=== PATIENT | female | born 1970 | race Native Hawaiian/Other Pacific Islander ===

== ENCOUNTER 2018-11-11 08:49 | Emergency (ER) | payer BC ==
--- NOTE | 2018-11-11 09:52 | C.PDOC ---
History Of Present Illness 48 y/o female with asthma, s/p cardiac sx for pda, cholecystectomy and appendectomy, lumbar disk problems, c/o right flank pain that radiates to suprapubic area x 2 days that is constant, worse with movement, not alleviated by 600 mg motrin. no fever or chills, no nausea or vomiting. pt is menstruating. no trauma, heavy lifting, prolonged immobilizations, or recent surgery. denies urinary symptoms. Time Seen by Provider: 11/11/18 09:32 Chief Complaint (Nursing): Back Pain History Per: Patient History/Exam Limitations: no limitations Onset/Duration Of Symptoms: Days (2 days ), Other (constant ) Current Symptoms Are (Timing): Still Present Quality Of Discomfort: "Pain" (right flank with radiation to suprapubic area ) Exacerbating Factor(s): Movement Recent travel outside of the [place]: No Additional History Per: Patient Past Medical History Reviewed: Historical Data, Nursing Documentation, Vital Signs - Medical History PMH: Asthma Surgical History: Appendectomy, Cholecystectomy Family History: States: Unknown Family Hx - Social History Hx Alcohol Use: No Hx Substance Use: No - Immunization History Hx Tetanus Toxoid Vaccination: No Hx Influenza Vaccination: No Hx Pneumococcal Vaccination: No Review Of Systems Constitutional: Negative for: Fever, Chills Gastrointestinal: Negative for: Nausea, Vomiting Genitourinary: Negative for: Dysuria, Hematuria, Vaginal Discharge Musculoskeletal: Positive for: Back Pain (right flank pain radiating to suprapubic area ) Physical Exam - Physical Exam Appears: Well, Non-toxic, Other (uncomfortable ) Skin: Normal Color, Warm, Dry, No Rash Head: Atraumatic, Normacephalic Eye(s): bilateral: Normal Inspection Oral Mucosa: Moist Neck: Normal ROM, No Midline Cervical Tenderness, Supple Chest: Symmetrical, No Deformity Cardiovascular: Rhythm Regular, No Murmur Respiratory: No Rales, No Rhonchi, Wheezing (scattered ) Gastrointestinal/Abdominal: Bowel Sounds (normoactive ), Soft, No Tenderness, No Guarding, No Rebound Back: No Vertebral Tenderness (midline ), Paraspinal Tenderness ( right lumbar) Extremity: No Pedal Edema, No Calf Tenderness Neurological/Psych: Oriented x3, Normal Speech, Normal Cognition ED Course And Treatment - Laboratory Results Result Diagrams: 11/11/18 10:15 11/11/18 10:15 Medical Decision Making Medical Decision Making: pt with right flank pain, worse with movement, radiates to pelvis. ddx: kidney stone, pna, pe, musculoskeltal pain Plan: Bloodwork Urine Culture Urinalysis POC Urine Toradol 30 mg IVP Duoneb 3mg/0.5mg (3ml) UD 1242 pt with normal labs, neg d-dimer, ct neg for ab pathology and kidney stone. pt has hx of lumbar problems, and given pt's pain with movement today, is likely musculoskeletal related. pt plans to resume physical therapy. Disposition Counseled Patient/Family Regarding: Studies Performed, Diagnosis, Need For Followup, Rx Given - Disposition Referrals: Izzy Rosales MD [Staff Provider] - Disposition: HOME/ ROUTINE Disposition Time: 12:46 Condition: IMPROVED Additional Instructions: Please take naproxen as prescribed (with food). Use Lidoderm patches that you have at home on painful area for 12 hours on and 12 off. Take muscle relaxant at bedtime. Follow up with Dr Rosales. Return to ER for any worse symptoms. 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 - Scribe Statement The provider has reviewed the documentation as recorded by the Yossi Lopes All medical record entries made by the Yossi were at my direction and personally dictated by me. I have reviewed the chart and agree that the record accurately reflects my personal performance of the history, physical exam, medical decision making, and the department course for this patient. I have also personally directed, reviewed, and agree with the discharge instructions and disposition.
[2018-11-11] MEDS ORDERED: Albuterol-Ipratrop 3 mg / 0.5 (3 ml) UD INH STA (09:54)
[2018-11-11 10:18] LABS: BASO % 0.7 % (0.0-2.0); EOS # 0.3 K/uL (0.0-0.7); EOS % 4.8 % (0.0-4.0); HEMOGLOBIN 14.6 g/dL (11.0-16.0); LYMPH # 1.6 K/uL (1.0-4.3); LYMPH % 23.9 % (20.0-40.0); MEAN CELL VOLUME 90.3 fL (81.0-99.0); MEAN CORPUSCULAR HEMOGLOBIN 30.6 pg (27.0-31.0); MEAN PLATELET VOLUME 7.2 fL (7.2-11.7); MONO # 0.4 K/uL (0.0-0.8); MONO % 6.2 % (0.0-10.0); NEUT # 4.4 K/uL (1.8-7.0); NEUT % 64.4 % (50.0-75.0); RBC 4.76 Mil/uL (3.80-5.20); RED CELL DISTRIBUTION WIDTH 13.2 % (11.5-14.5); WHITE BLOOD COUNT 6.9 K/uL (4.8-10.8)
[2018-11-11] MEDS ORDERED: Albuterol-Ipratrop 3 mg / 0.5 (3 ml) UD ONE (10:22)
[2018-11-11 10:28] LABS: SQUAMOUS EPITHIAL 1 /hpf (0-5); URINE BILIRUBIN NEGATIVE (NEGATIVE); URINE BLOOD NEGATIVE (NEGATIVE); URINE CLARITY Hazy (Clear); URINE COLOR Amber (YELLOW); URINE GLUCOSE (UA) NORMAL (Normal); URINE LEUKOCYTE ESTERASE NEG Leu/uL (Negative); URINE PROTEIN NEGATIVE (NEGATIVE); URINE UROBILINOGEN NORMAL mg/dL (0.2-1.0)
[2018-11-11 10:34] LABS: ALB/GLOB RATIO 1.3 (1.0-2.1); ALBUMIN 4.7 g/dL (3.5-5.0); ALT/SGPT 30 U/L (9-52); AST/SGOT 36 U/L (14-36); BLOOD UREA NITROGEN 12 mg/dL (7-17); GFR NON-AFRICAN AMERICAN > 60
--- NOTE | 2018-11-11 12:06 | CT ---
PROCEDURE: CT Abdomen and Pelvis without Oral or IV contrast. HISTORY: right flank pain, eval for stone COMPARISON: None available. TECHNIQUE: Contiguous axial images of the abdomen and pelvis. No oral or IV contrast administered. Coronal and Sagittal reformats generated and reviewed. Radiation dose: Total exam DLP = 310.77 mGy-cm. This CT exam was performed using one or more of the following dose reduction techniques: Automated exposure control, adjustment of the mA and/or kV according to patient size, and/or use of iterative reconstruction technique. FINDINGS: There is limited evaluation of the solid organs without the administration of IV contrast. LOWER THORAX: No visible consolidation, pleural effusion, or pneumothorax. LIVER: Unremarkable unenhanced appearance. GALLBLADDER AND BILE DUCTS: Unremarkable unenhanced appearance. PANCREAS: Unremarkable unenhanced appearance. SPLEEN: Unremarkable unenhanced appearance. ADRENALS: Unremarkable unenhanced appearance. KIDNEYS AND URETERS: No hydronephrosis or obstructing renal calculus. BLADDER: The urinary bladder appears unremarkable. REPRODUCTIVE: Uterus is present. APPENDIX: The appendix appears within normal limits of caliber. No secondary signs of acute appendicitis. BOWEL: The stomach is nondistended. Lack of oral contrast limits evaluation for bowel pathology. The bowel loops appear within normal limits of caliber without evidence of intestinal obstruction. PERITONEUM: No significant free fluid. No definite free air. LYMPH NODES: Scattered subcentimeter mesenteric lymph nodes, nonspecific. No bulky lymphadenopathy identified. VASCULATURE: Scattered atherosclerotic calcifications. No aortic aneurysm. BONES: Mild degenerative changes of the spine. OTHER FINDINGS: None. IMPRESSION: No evidence of hydronephrosis or obstructing calculus. The appendix is not identified. No secondary signs of acute appendicitis appreciated. Correlate clinically. Scattered sub cm mesenteric lymph nodes, nonspecific.
[2018-11-11 13:04] VITALS: BP 124/83; PULSE 86; RESP 18; TEMP 98.4; O2SAT 100
== END 2018-11-11 13:12 | disposition home or self-care (01) ==
LOC: C.ER 08:49
DX: S29.012A Strain of muscle and tendon of back wall of thorax, initial encounter (principal); X58.XXXA Exposure to other specified factors, initial encounter
CPT/HCPCS: 74176; 80053; 81001; 81025; 85025; 85378; 94150; 94640; 96374; 99285; J1885

== ENCOUNTER 2018-12-13 11:32 | Observation (INO) | payer BC ==
[2018-12-13 11:40] VITALS: BMI 22.7
[2018-12-13 12:24] LABS: BASO # 0.1 K/uL (0.0-0.2); BASO % 0.6 % (0.0-2.0); EOS # 0.5 K/uL (0.0-0.7); MEAN PLATELET VOLUME 7.2 fL (7.2-11.7); MONO # 0.6 K/uL (0.0-0.8); NEUT # 8.3 K/uL (1.8-7.0); NRBC % 0.1 % (0.0-2.0)
[2018-12-13 12:29] LABS: EOS % 4.4 % (0.0-4.0); HEMOGLOBIN 14.7 g/dL (11.0-16.0); LYMPH % 17.3 % (20.0-40.0); MEAN CORPUSCULAR HEMOGLOBIN 29.2 pg (27.0-31.0); MEAN CORPUSCULAR HGB CONC 32.4 g/dL (33.0-37.0); MONO % 4.9 % (0.0-10.0); NEUT % 72.8 % (50.0-75.0); RBC 5.04 Mil/uL (3.80-5.20); RED CELL DISTRIBUTION WIDTH 13.1 % (11.5-14.5)
[2018-12-13 12:30] LABS: WHITE BLOOD COUNT 11.4 K/uL (4.8-10.8)
--- NOTE | 2018-12-13 12:36 | C.PDOC ---
History Of Present Illness 48yo female with history of GERD, on protonix (compliant), comes to ER reporting a 2 day history of epigastric abdominal pain. She states no relief in her symptoms with protonix. Otherwise, she denies any nausea, vomiting or diarrhea. No other medical complaints. PMD: Dr. Rosales Time Seen by Provider: 12/13/18 11:56 Chief Complaint (Nursing): Abdominal Pain History Per: Patient History/Exam Limitations: no limitations Location Of Pain/Discomfort: Epigastric Quality Of Discomfort: "Pain" Associated Symptoms: denies: Fever, Chills, Nausea, Vomiting, Diarrhea Additional History Per: Patient Past Medical History Reviewed: Historical Data, Nursing Documentation, Vital Signs Vital Signs: Last Vital Signs Temp 97.3 F L 12/13/18 11:40 Pulse 83 12/13/18 11:40 Resp 18 12/13/18 11:40 BP 145/87 12/13/18 11:40 Pulse Ox 98 12/13/18 11:40 - Medical History PMH: Asthma, GERD Surgical History: Appendectomy, Cholecystectomy Family History: States: No Known Family Hx - Social History Hx Alcohol Use: No Hx Substance Use: No - Immunization History Hx Tetanus Toxoid Vaccination: No Hx Influenza Vaccination: No Hx Pneumococcal Vaccination: No Review Of Systems Except As Marked, All Systems Reviewed And Found Negative. Constitutional: Negative for: Fever, Chills Cardiovascular: Negative for: Chest Pain Respiratory: Negative for: Shortness of Breath Gastrointestinal: Positive for: Abdominal Pain. Negative for: Nausea, Vomiting, Diarrhea Physical Exam - Physical Exam Appears: Non-toxic, No Acute Distress Skin: Normal Color Head: Atraumatic, Normacephalic Eye(s): bilateral: Normal Inspection Oral Mucosa: Moist Neck: Normal ROM, Supple Chest: Symmetrical Cardiovascular: Rhythm Regular Respiratory: Normal Breath Sounds Gastrointestinal/Abdominal: Soft, Tenderness (epigastric), No Guarding, No Rebound Back: Normal Inspection Extremity: Normal ROM Neurological/Psych: Oriented x3 ED Course And Treatment - Laboratory Results Result Diagrams: 12/13/18 12:08 12/13/18 12:08 O2 Sat by Pulse Oximetry: 98 (RA) Pulse Ox Interpretation: Normal - CT Scan/US CT Abdomen/Pelvis Other Rad Studies (CT/US): Read By Radiologist, Radiology Report Reviewed CT/US Interpretation: FINDINGS: LOWER THORAX: Size within range of normal. No significant pericardial effusion. There is a small hiatal hernia. Lung bases are clear without focal consolidation. No evidence of effusion or basilar pneumothorax. LIVER: Liver exhibits normal size measuring approximately 16.4 cm in CC dimension. Mild diffuse fatty hepatic infiltration. No obvious hepatic mass collection or calcification. Minimal central intrahepatic biliary ductal dilatation. Portal and splenic veins are opacified. GALLBLADDER AND BILE DUCTS: Gallbladder not visualized consistent with this patient's history of prior cholecystectomy. There is mild dilatation of the common bile duct. PANCREAS: Unremarkable. No mass. No ductal dilatation. SPLEEN: Spleen exhibits normal size and attenuation pattern without mass collection or calcification. ADRENALS: No adrenal lesions. KIDNEYS AND URETERS: Kidneys demonstrate symmetric nephrograms. No evidence of nephrolithiasis or hydronephrosis. No obvious renal masses or collections. Of nephrolithiasis or hydronephrosis. BLADDER: Urinary bladder is incompletely distended which in part accounts for slight thick-walled appearance. Correlation with urinalysis to exclude cystitis.. REPRODUCTIVE: Multiple ill-defined rounded -elliptical shaped low-attenuation foci seen in the region of the cervix likely representing multiple nabothian cysts. Increased vascularity seen adjacent to the left lateral margin of the uterus likely representing pelvic congestion syndrome. Suspect small approximately 16 mm x 10 mm right adnexal cyst. Follow-up of pelvic ultrasound recommended for all of the aforementioned findings. APPENDIX: Not seen consistent with this patient's history of appendectomy. BOWEL: Evaluation of the bowel slightly limited due to the lack of circulating intravenous contrast material. Stomach is incompletely distended with mild secondary wall thickening however questionable of edematous changes in the wall of the mid and distal stomach. There is partial collapse of the distal transverse, descending sigmoid and rectum which may in part account for mild wall thickening however findings are slightly more pronounced than expected and the possibility of a colitis must be considered. Similar collapse and secondary wall thickening of the descending and sigmoid colon though again colitis should be excluded. Diverticulosis which which was more obvious on the prior exam less well seen on the current study. PERITONEUM: Unremarkable. No fluid collection. No free air. LYMPH NODES: There are a few small nonspecific lymph nodes in the right lower quadrant of the abdomen; rule out mesenteric adenitis. VASCULATURE: Unremarkable. No aortic aneurysm. No aortic atherosclerotic calcification or mural plaque present. BONES: Mild multilevel degenerative spondylosis of the lumbar and to a lesser degree lower thoracic spine. OTHER FINDINGS: None. IMPRESSION: There is mild wall thickening of the distal half of the colon including the rectosigmoid region in part due to incomplete distention however possibility of a nonspecific colitis must be considered. There is also mild wall thickening of the distal so half of the stomach part of which appears edematous. Rule out gastritis or peptic ulcer disease. Cholecystectomy with mild dilatation of the common bile duct and minimal central intrahepatic biliary ductal dilatation. Mild fatty hepatic infiltration. Status post appendectomy. Probable numerous nabothian cysts. Findings also suggest a pelvic congestion syndrome. Small right adnexal cyst. Follow-up pelvic ultrasound recommended for all the above-mentioned findings. Diverticulosis which which was more obvious on the prior exam less well seen on the current study Medical Decision Making Medical Decision [place] female with epigastric pain Plan: -- Labs -- Urinalysis -- XR abdomen (obstructive series) -- Toradol 30mg IVP -- Protonix 40mg IVP [address] Rosales, patient admitted under his service. Dr. Ye on surgical consult; surgical technology instructor informed and will come evaluate patient at bedside Disposition Discussed With Dr.: Izzy Rosales Doctor Will See Patient In The: Hospital Counseled Patient/Family Regarding: Studies Performed, Diagnosis - Disposition Disposition: HOSPITALIZED Disposition Time: 15:42 Condition: FAIR Forms: [facility] ([place]adorean) - Clinical Impression Clinical Impression: Abdominal pain - Scribe Statement The provider has reviewed the documentation as recorded by the Yossi Delgadillo Provider Attestation: All medical record entries made by the Yossi were at my direction and personally dictated by me. I have reviewed the chart and agree that the record accurately reflects my personal performance of the history, physical exam, medical decision making, and the department course for this patient. I have also personally directed, reviewed, and agree with the discharge instructions and disposition.
[2018-12-13 12:41] LABS: ALB/GLOB RATIO 1.3 (1.0-2.1); ALT/SGPT 31 U/L (9-52); AST/SGOT 38 U/L (14-36); BLOOD UREA NITROGEN 11 mg/dL (7-17); CALCIUM 8.9 mg/dl (8.6-10.4); GFR NON-AFRICAN AMERICAN > 60; LIPASE 156 U/L (23-300)
[2018-12-13] MEDS ORDERED: Morphine 4 MG/ML VIAL IV STA ×2 (12:53→15:32)
[2018-12-13] MEDS ORDERED: Alum-Mag Hydrox-Simethicone Susp (30 mL) PO STA (12:54)
[2018-12-13] MEDS ORDERED: Aluminum Hydroxide/Magnesium Hydroxide Susp (30 mL) ONE (13:03)
--- NOTE | 2018-12-13 13:37 | RAD ---
Date of service: 12/13/2018 PROCEDURE: Radiographs of the chest and abdomen (obstructive series) HISTORY: Abdominal pain COMPARISON: No prior. TECHNIQUE: AP radiograph of the chest, with upright and supine radiographs of the abdomen. FINDINGS: CHEST: Lungs: The lungs are well inflated and clear. Cardiovascular: Normal size heart. No pulmonary vascular congestion. No aortic atherosclerotic calcification present Pleura: No pleural fluid. No pneumothorax. Other findings: None. ABDOMEN AND PELVIS: Bowel: The bowel gas pattern is nonspecific. There is moderate amount of stool in the ascending colon. No evidence of mechanical obstruction. Free air: None. Bones: Unremarkable. Other findings: None. IMPRESSION: Nonspecific nonobstructive bowel gas pattern. Clear lungs.
[2018-12-13] MEDS ORDERED: Iodixanol 320 MG/ML 100 ML BOTTLE IV ONE (14:05)
--- NOTE | 2018-12-13 15:39 | CT ---
Date of service: 12/13/2018 PROCEDURE: CT Abdomen and Pelvis.. HISTORY: Abdominal pain COMPARISON: Comparison made with prior CT scan abdomen pelvis 11/11/2018. TECHNIQUE: Contiguous axial images of the abdomen and pelvis performed following intravenous injection of approximately 100 cc Visipaque 320 contrast material. Additional 2D sagittal and coronal reformats generated. Radiation dose: Total exam DLP = 204.98 mGy-cm. This CT exam was performed using one or more of the following dose reduction techniques: Automated exposure control, adjustment of the mA and/or kV according to patient size, and/or use of iterative reconstruction technique. FINDINGS: LOWER THORAX: Size within range of normal. No significant pericardial effusion. There is a small hiatal hernia. Lung bases are clear without focal consolidation. No evidence of effusion or basilar pneumothorax. LIVER: Liver exhibits normal size measuring approximately 16.4 cm in CC dimension. Mild diffuse fatty hepatic infiltration. No obvious hepatic mass collection or calcification. Minimal central intrahepatic biliary ductal dilatation. Portal and splenic veins are opacified. GALLBLADDER AND BILE DUCTS: Gallbladder not visualized consistent with this patient's history of prior cholecystectomy. There is mild dilatation of the common bile duct. PANCREAS: Unremarkable. No mass. No ductal dilatation. SPLEEN: Spleen exhibits normal size and attenuation pattern without mass collection or calcification. ADRENALS: No adrenal lesions. KIDNEYS AND URETERS: Kidneys demonstrate symmetric nephrograms. No evidence of nephrolithiasis or hydronephrosis. No obvious renal masses or collections. Of nephrolithiasis or hydronephrosis BLADDER: Urinary bladder is incompletely distended which in part accounts for slight thick-walled appearance. Correlation with urinalysis to exclude cystitis.. REPRODUCTIVE: Multiple ill-defined rounded -elliptical shaped low-attenuation foci seen in the region of the cervix likely representing multiple nabothian cysts. Increased vascularity seen adjacent to the left lateral margin of the uterus likely representing pelvic congestion syndrome. Suspect small approximately 16 mm x 10 mm right adnexal cyst. Follow-up of pelvic ultrasound recommended for all of the aforementioned findings. APPENDIX: Not seen consistent with this patient's history of appendectomy BOWEL: Evaluation of the bowel slightly limited due to the lack of circulating intravenous contrast material. Stomach is incompletely distended with mild secondary wall thickening however questionable of edematous changes in the wall of the mid and distal stomach. There is partial collapse of the distal transverse, descending sigmoid and rectum which may in part account for mild wall thickening however findings are slightly more pronounced than expected and the possibility of a colitis must be considered. Similar collapse and secondary wall thickening of the descending and sigmoid colon though again colitis should be excluded. Diverticulosis which which was more obvious on the prior exam less well seen on the current study PERITONEUM: Unremarkable. No fluid collection. No free air. LYMPH NODES: There are a few small nonspecific lymph nodes in the right lower quadrant of the abdomen; rule out mesenteric adenitis. VASCULATURE: Unremarkable. No aortic aneurysm. No aortic atherosclerotic calcification or mural plaque present. BONES: Mild multilevel degenerative spondylosis of the lumbar and to a lesser degree lower thoracic spine. OTHER FINDINGS: None. IMPRESSION: There is mild wall thickening of the distal half of the colon including the rectosigmoid region in part due to incomplete distention however possibility of a nonspecific colitis must be considered. There is also mild wall thickening of the distal so half of the stomach part of which appears edematous. Rule out gastritis or peptic ulcer disease. Cholecystectomy with mild dilatation of the common bile duct and minimal central intrahepatic biliary ductal dilatation. Mild fatty hepatic infiltration. Status post appendectomy. Probable numerous nabothian cysts. Findings also suggest a pelvic congestion syndrome. Small right adnexal cyst. Follow-up pelvic ultrasound recommended for all the above-mentioned findings. Diverticulosis which which was more obvious on the prior exam less well seen on the current study
[2018-12-13] MEDS ORDERED: Morphine 4 MG/ML VIAL ONE (15:41)
--- NOTE | 2018-12-13 17:11 | CP.PCM.CON ---
<Lenka Dozier - Last Filed: 12/13/18 17:23> History of Present Illness - History of Present Illness History of Present Illness: GENERAL SURGERY CONSULT NOTE FOR DR. YE Patient is a 48 y/o female with past medical history of GERD and asthma who presented to the ED with worsening epigastric abdominal pain since last night. She complains of having intermittent abd pain over the past 7 days and described the pain to be sharp epigastric and mid left abdomen which is non radiating and rates it 10/10. This has never happened in the past. She took Protonix, but did not seem to help with the pain. Denies fever, chills, chest pain, SOB, nausea, vomit, dysuria, constipation, diarrhea or blood in stool. PMHx: GERD, asthma Surgeries: open appendectomy, open cholecystectomy, x2, PDA surgery Allergies: none Meds: protonix, mylenta Social history: denies etoh abuse, tobacco abuse, illicit drug use Review of Systems - Review of Systems All systems: reviewed and no additional remarkable complaints except (as per hpi) - Gastrointestinal Gastrointestinal: Abdominal Pain, Nausea. absent: Change in Bowel Habits, Change in Stool Character, Constipation, Diarrhea, Hematemesis, Hematochezia, Loose Stools, Melena, Vomiting - Genitourinary Genitourinary: absent: Difficulty Urinating, Dysuria, Flank Pain, Hematuria, Urinary Incontinence, Urinary Frequency Past Patient History - Past Medical History & Family History Past Medical History?: Yes Pertinent Family History: Father and siblings have HTN - Past Social History Smoking Status: Never Smoked Chewing Tobacco Use: No Cigar Use: No Alcohol: None Drugs: Denies Home Situation {Lives}: With Family - CARDIAC Hx Cardiac Disorders: Yes Other/Comment: palpitations as per patient. open heart surgery as a child - PULMONARY Hx Asthma: Yes - MUSCULOSKELETAL/RHEUMATOLOGICAL Hx Musculoskeletal Disorders: Yes Hx Back Pain: Yes - GASTROINTESTINAL Hx Gastrointestinal Disorders: Yes Hx Gastroesophageal Reflux: Yes - PSYCHIATRIC Hx Substance Use: No - SURGICAL HISTORY Hx Appendectomy: Yes Hx Cholecystectomy: Yes - ANESTHESIA Hx Anesthesia: Yes Hx Anesthesia Reactions: No Meds Allergies/Adverse Reactions: Allergies Allergy/AdvReac Type Severity Reaction Status Date / Time No Known Allergies Allergy Verified 12/13/18 11:40 - Medications Medications: Current Medications Heparin Sodium (Porcine) (Heparin) 5,000 units SC Q8 [facility] Hydromorphone HCl (Dilaudid) 0.5 mg IVP Q6H PRN PRN Reason: Pain, severe (8-10) Ceftriaxone Sodium (Rocephin Iv 1 Gm Duplex) 50 mls @ 100 mls/hr IVPB DAILY [facility]; Protocol Ketorolac Tromethamine (Toradol) 30 mg IVP Q6 PRN PRN Reason: Pain, moderate (4-7) Pantoprazole Sodium (Protonix Inj) 40 mg IVP DAILY [facility] Physical Exam - Constitutional Appears: Non-toxic, No Acute Distress Additional comments: Uncomfortable - Head Exam Head Exam: ATRAUMATIC, NORMAL INSPECTION, NORMOCEPHALIC - Eye Exam Eye Exam: EOMI, Normal appearance, PERRL Pupil Exam: NORMAL ACCOMODATION - ENT Exam ENT Exam: Mucous Membranes Moist, Normal Exam - Respiratory Exam Respiratory Exam: Clear to Auscultation Bilateral, NORMAL BREATHING PATTERN. ab sent: Decreased Breath Sounds, Rales, Rhonchi, Wheezes - Cardiovascular Exam Cardiovascular Exam: REGULAR RHYTHM, +S1, +S2. absent: Tachycardia, Irregular Rhythm - GI/Abdominal Exam GI & Abdominal Exam: Normal Bowel Sounds, Soft, Tenderness (epigastric, LUQ). absent: Distended, Firm, Mass, Rebound, Rigid - Back Exam Back exam: NORMAL INSPECTION. absent: CVA tenderness (L), CVA tenderness (R), rash noted - Neurological Exam Neurological exam: Alert, Oriented x3 - Psychiatric Exam Psychiatric exam: Normal Affect, Normal Mood - Skin Skin Exam: Dry, Normal Color, Warm Results - Vital Signs Recent Vital Signs: Last Vital Signs Temp 97.3 F L 12/13/18 11:40 Pulse 92 H 12/13/18 16:34 Resp 16 12/13/18 16:34 BP 125/89 12/13/18 16:34 Pulse Ox 98 12/13/18 16:34 - Labs Result Diagrams: 12/13/18 12:08 12/13/18 12:08 Labs: Laboratory Results - last 24 hr 12/13/18 12/13/18 12/13/18 12:08 12:08 12:08 WBC 11.4 H D RBC 5.04 Hgb 14.7 Hct 45.4 MCV 90.0 MCH 29.2 MCHC 32.4 L RDW 13.1 Plt Count 383 MPV 7.2 Neut % (Auto) 72.8 Lymph % (Auto) 17.3 L [place] % (Auto) 4.9 Eos % (Auto) 4.4 H Baso % (Auto) 0.6 Neut # (Auto) 8.3 H Lymph # (Auto) 2.0 [place] # (Auto) 0.6 Eos # (Auto) 0.5 Baso # (Auto) 0.1 Sodium 136 Potassium 3.5 L Chloride 100 Carbon Dioxide 27 Anion Gap 12 BUN 11 Creatinine 0.5 L Est GFR ( Amer) > 60 Est GFR (Non-Af Amer) > 60 Random Glucose 92 Calcium 8.9 Total Bilirubin 0.7 AST 38 H ALT 31 Alkaline Phosphatase 71 Troponin I < 0.0120 Total Protein 9.0 H Albumin 5.0 Globulin 3.9 Albumin/Globulin Ratio 1.3 Lipase 156 Beta HCG, Quant < 2.39 Assessment & Plan - Assessment and Plan (Free Text) Assessment: 48 y.o female with past medical history of GERD and Asthma who presented to the ED with epigastric abdominal pain - Afebrile, VSS - WBC 11.4 - Obstructive series: no free air - CT: mild wall thickening of distal colon in part due to incomplete distention however possibility of nonspecific colitis must be considered. Also mild wall thickening of distal half of stomach which appears edematous. Rule out gastritis or PUD - No acute surgical intervention necessary - PPI - FU lactate - Will discuss plan with Dr. Ephraim Dozier PGY-4 <Kenneth Ye - Last Filed: 12/15/18 17:06> Meds - Medications Medications: Current Medications Al Hydrox/Mg Hydrox/Simethicone (Maalox 30 Ml) 30 ml PO Q8 PRN PRN Reason: Indigestion / Heartburn Last Admin: 12/14/18 09:28 Dose: 30 ml Heparin Sodium (Porcine) (Heparin) 5,000 units SC Q8 [facility] Last Admin: 12/15/18 14:48 Dose: Not Given Sodium Chloride (Sodium Chloride 0.9%) 1,000 mls @ 100 mls/hr IV .Q10H [facility] Last Admin: 12/15/18 12:38 Dose: Not Given Metronidazole (Flagyl) 500 mg in 100 mls @ 100 mls/hr IVPB Q8H [facility]; Protocol Last Admin: 12/15/18 12:38 Dose: 100 mls/hr Piperacillin Sod/Tazobactam Sod (Zosyn 3.375 Gm Iv Premix) 3.375 gm in 50 mls @ 100 mls/hr IVPB Q6H [facility]; Protocol Last Admin: 12/15/18 17:03 Dose: 100 mls/hr Pantoprazole Sodium (Protonix Ec Tab) 40 mg PO DAILY [facility] Last Admin: 12/15/18 10:34 Dose: 40 mg Results - Vital Signs Recent Vital Signs: Last Vital Signs Temp 98.1 F 12/15/18 15:00 Pulse 84 12/15/18 15:00 Resp 20 12/15/18 15:00 BP 117/74 12/15/18 15:00 Pulse Ox 99 12/15/18 16:42 - Labs Result Diagrams: 12/15/18 08:26 12/15/18 08:26 Labs: Laboratory Results - last 24 hr 12/14/18 12/15/18 12/15/18 08:21 08:26 08:26 WBC 7.4 RBC 4.16 Hgb 12.5 Hct 37.4 MCV 89.8 MCH 30.1 MCHC 33.5 RDW 13.3 Plt Count 313 MPV 7.2 Sodium 135 Potassium 4.0 Chloride 103 Carbon Dioxide 27 Anion Gap 9 L BUN 4 L Creatinine 0.6 L Est GFR ( Amer) > 60 Est GFR (Non-Af Amer) > 60 Random Glucose 99 D Calcium 7.9 L Total Bilirubin 0.9 Direct Bilirubin 0.1 AST 73 H D ALT 113 H Alkaline Phosphatase 79 Total Protein 6.9 Albumin 4.0 Globulin 2.9 Albumin/Globulin Ratio 1.4 Stool Occult Blood C. difficile Ag & Toxin Negative 12/15/18 12:00 WBC RBC Hgb Hct MCV MCH MCHC RDW Plt Count MPV Sodium Potassium Chloride Carbon Dioxide Anion Gap BUN Creatinine Est GFR ( Amer) Est GFR (Non-Af Amer) Random Glucose Calcium Total Bilirubin Direct Bilirubin AST ALT Alkaline Phosphatase Total Protein Albumin Globulin Albumin/Globulin Ratio Stool Occult Blood Negative C. difficile Ag & Toxin Attending/Attestation - Attestation I have personally seen and examined this patient.: Yes I have fully participated in the care of the patient.: Yes I have reviewed all pertinent clinical information: Yes Notes (Text): Pt was seen and examined at bedside Agree with above note and assessment Pt with Diarrhea and Abdominal Pain Abdomen: Soft, ND, tender in LLQ Labs and Radiology reviewed Ass: Colitis with PSBO/ileus Plan : IV antibiotics NPO, IVF GI consult Serial abdominal exam Plan d.w pt in detail Risk and benefit explained in detail.
[2018-12-13] MEDS ORDERED: Aluminum Hydroxide/Magnesium Hydroxide Susp (30 mL) PO PRN (17:15)
[2018-12-13] MEDS: Sodium Chloride 0.9% 1,000 ML IV SCH (17:35)
[2018-12-13 17:48] LABS: VENOUS BLOOD GAS BASE EXCESS -1.8 mmol/L (0.0-2.0); VENOUS BLOOD GAS PCO2 39 mmHg (40-60); VENOUS BLOOD GAS PO2 57 mm/Hg (30-55); VENOUS BLOOD PH 7.38 (7.32-7.43)
[2018-12-13] MEDS ORDERED: Sucralfate 1 gm/10 ml Oral Susp UD PO SCH (18:00)
[2018-12-13] MEDS ORDERED: cefTRIAXone IV 1 gm in Dextros 50 ML IVPB SCH (18:30)
[2018-12-13 18:55] LABS: SQUAMOUS EPITHIAL 1 /hpf (0-5); URINE BACTERIA RARE (<OCC); URINE BILIRUBIN NEGATIVE (NEGATIVE); URINE BLOOD NEGATIVE (NEGATIVE); URINE CLARITY Clear (Clear); URINE COLOR Yellow (YELLOW); URINE GLUCOSE (UA) NORMAL (Normal); URINE LEUKOCYTE ESTERASE NEG Leu/uL (Negative); URINE PROTEIN NEGATIVE (NEGATIVE); URINE UROBILINOGEN NORMAL mg/dL (0.2-1.0)
[2018-12-13] MEDS: HYDROmorphone 0.5 mg/0.5 ml ISec IVP PRN (18:59)
[2018-12-13] MEDS: Pantoprazole 80 MG in Sodium Chloride 0.9% 100 ML IVPB SCH (19:16)
--- NOTE | 2018-12-13 21:21 | CP.PCM.HP ---
History of Present Illness - History of Present Illness History of Present Illness: Chief complaint: Sudden onset of abdominal pain HPI: 48-year-old female with history of bronchial asthma, history of patent ductus ar teriosus closure at the age of 3 months, and also lumbar disc disease with recently associate with chronic back pain. Patient started noticing somewhat of abdominal pain, started at least 1 week. The pain was intermittent initially epigastric area nonradiating pain, but gradually the pain got worse. Patient was taking pantoprazole without any improvement. She was also using some [id number] medication without any improvement. Patient started getting worsening. Yesterday to this morning pain continued to be worsening, continuous pain noted, epigastric area, nonradiating pain, sometimes radiating to the back. She was also having nausea associated with the pain. No vomiting noted. Few episodes of increasing bowel movements yesterday noted. She was able to eat, but because of the nausea she was not able to eat well. Past medical history: Bronchial asthma. Surgical history: c section appendectomy and cholecytectomy PDA closure at 3 months. Family history: FATHER is . He at the age of 73. It was a natural . He had heart attack(mi) and hypertension. MOTHER is alive. She has hypertension. Allergies: No known drug allergy Family history noncontributory Patient is a non-smoker nonalcoholic Review of system: Patient is having no headache. She has a history of asthma but controlled with medications. She has a chronic lower back pain, recently got worse. Had MRI, showing evidence of multiple disc disease, was receiving physical therapy. Patient is having intermittent abdominal pain. In the past the patient was taking pantoprazole, with improvement. On examination: Vital signs stable. Blood pressure stable. Chest good air entry Regular heart sounds noted Abdomen patient has a significant tenderness in the epigastric and left hypochondriac area, but soft abdomen otherwise. Bowel movements are normal. Labs reviewed nonspecific CT scan of the abdomen and pelvis showing evidence of possible early colitis changes noted Also there is a significant engorgement of the pelvic venous system noted Assessment and recommendation: 48-year-old female with a history of bronchial asthma, history of patent ductus arteriosus closure at the age of 3 months, chronic lower back pain now came to the emergency room with worsening abdominal pain. Most likely patient has acute peptic ulcer disease. Possible associated pancreatitis cannot be ruled out Pelvic venous engorgement, possible associated pain PAD cannot be ruled out. 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 Will get GI evaluation. Recommended Protonix drip. Pain management. IV fluid. N.p.o. And will follow the patient Present on Admission - Present on Admission Any Indicators Present on Admission: No History of DVT/PE: No History of Uncontrolled Diabetes: No Urinary Catheter: No Decubitus Ulcer Present: No Past Patient History - Past Medical History & Family History Past Medical History?: Yes - Past Social History Smoking Status: Never Smoked Chewing Tobacco Use: No Cigar Use: No Alcohol: None Drugs: Denies Home Situation {Lives}: With Family - CARDIAC Hx Cardiac Disorders: Yes Other/Comment: palpitations as per patient. open heart surgery as a child - PULMONARY Hx Asthma: Yes - MUSCULOSKELETAL/RHEUMATOLOGICAL Hx Musculoskeletal Disorders: Yes Hx Back Pain: Yes - GASTROINTESTINAL Hx Gastrointestinal Disorders: Yes Hx Gastroesophageal Reflux: Yes - PSYCHIATRIC Hx Substance Use: No - SURGICAL HISTORY Hx Appendectomy: Yes Hx Cholecystectomy: Yes - ANESTHESIA Hx Anesthesia: Yes Hx Anesthesia Reactions: No Meds Allergies/Adverse Reactions: Allergies Allergy/AdvReac Type Severity Reaction Status Date / Time No Known Allergies Allergy Verified 12/13/18 11:40 Results - Vital Signs Recent Vital Signs: Last Vital Signs Temp 97.9 F 12/13/18 18:50 Pulse 100 H 12/13/18 18:50 Resp 20 12/13/18 18:50 BP 161/96 H 12/13/18 18:50 Pulse Ox 98 12/13/18 18:50 - Labs Result Diagrams: 12/13/18 12:08 12/13/18 12:08 Labs: Laboratory Results - last 24 hr 12/13/18 12/13/18 12/13/18 12:08 12:08 12:08 WBC 11.4 H D RBC 5.04 Hgb 14.7 Hct 45.4 MCV 90.0 MCH 29.2 MCHC 32.4 L RDW 13.1 Plt Count 383 MPV 7.2 Neut % (Auto) 72.8 Lymph % (Auto) 17.3 L [place] % (Auto) 4.9 Eos % (Auto) 4.4 H Baso % (Auto) 0.6 Neut # (Auto) 8.3 H Lymph # (Auto) 2.0 [place] # (Auto) 0.6 Eos # (Auto) 0.5 Baso # (Auto) 0.1 pO2 VBG pH VBG pCO2 VBG HCO3 VBG Total CO2 VBG O2 Sat (Calc) VBG Base Excess VBG Potassium Glucose Lactate Sodium 136 Potassium 3.5 L Chloride 100 Carbon Dioxide 27 Anion Gap 12 BUN 11 Creatinine 0.5 L Est GFR ( Amer) > 60 Est GFR (Non-Af Amer) > 60 Random Glucose 92 Calcium 8.9 Total Bilirubin 0.7 AST 38 H ALT 31 Alkaline Phosphatase 71 Troponin I < 0.0120 Total Protein 9.0 H Albumin 5.0 Globulin 3.9 Albumin/Globulin Ratio 1.3 Lipase 156 Beta HCG, Quant < 2.39 Venous Blood Potassium Urine Color Urine Clarity Urine pH Ur Specific [place] Urine Protein Urine Glucose (UA) Urine Ketones Urine Blood Urine Nitrate Urine Bilirubin Urine Urobilinogen Ur Leukocyte Esterase Urine WBC (Auto) Urine RBC (Auto) Ur Squamous Epith Cells Urine Bacteria 12/13/18 12/13/18 12/13/18 17:40 18:42 18:52 WBC RBC Hgb Hct MCV MCH MCHC RDW Plt Count MPV Neut % (Auto) Lymph % (Auto) [place] % (Auto) Eos % (Auto) Baso % (Auto) Neut # (Auto) Lymph # (Auto) [place] # (Auto) Eos # (Auto) Baso # (Auto) pO2 57 H VBG pH 7.38 VBG pCO2 39 L VBG HCO3 23.3 VBG Total CO2 24.3 VBG O2 Sat (Calc) 93.8 H VBG Base Excess -1.8 L VBG Potassium 5.2 Glucose 114 H Lactate 1.0 Sodium 138.0 Potassium Chloride 110.0 H Carbon Dioxide Anion Gap BUN Creatinine Est GFR ( Amer) Est GFR (Non-Af Amer) Random Glucose Calcium Total Bilirubin AST ALT Alkaline Phosphatase Troponin I Total Protein Albumin Globulin Albumin/Globulin Ratio Lipase 175 Beta HCG, Quant Venous Blood Potassium 5.2 Urine Color Yellow Urine Clarity Clear Urine pH 6.0 Ur Specific [place] > 1.060 H Urine Protein Negative Urine Glucose (UA) Normal Urine Ketones Trace Urine Blood Negative Urine Nitrate Negative Urine Bilirubin Negative Urine Urobilinogen Normal Ur Leukocyte Esterase Neg Urine WBC (Auto) 1 Urine RBC (Auto) 2 Ur Squamous Epith Cells 1 Urine Bacteria Rare
[2018-12-14] MEDS: Sodium Chloride 0.9% 1,000 ML IV SCH
[2018-12-14] MEDS: HYDROmorphone 0.5 mg/0.5 ml ISec IVP PRN (01:04)
[2018-12-14] MEDS: Pantoprazole 80 MG in Sodium Chloride 0.9% 100 ML IVPB SCH (04:15)
--- NOTE | 2018-12-14 08:19 | CP.PCM.PN ---
Subjective - Date & Time of Evaluation Date of Evaluation: 12/14/18 Time of Evaluation: 08:17 - Subjective Subjective: Patient still having abdominal pain at this time. But slightly better than yesterday. Currently receiving Protonix drip. On IV fluid. She had diarrhea last night. Watery stools noted. She did not have any nausea few episodes of. On examination: Vital signs are stable otherwise. Chest good air entry Regular heart sounds are regular labs currently pending. Epigastric tenderness severely noted GI evaluation currently pending Assessment and recommendation: 48-year-old female with a history of bronchial asthma, history of PDA closure. Now admitted with colitis likely. Acute peptic ulcer disease. GI evaluation pending. Currently n.p.o. We will start the patient on liquid diet if okay with the GI and will follow the patient Objective - Vital Signs/Intake and Output Vital Signs (last 24 hours): Temp Pulse Resp BP Pulse Ox 97.9 F 77 20 112/67 98 12/14/18 07:00 12/14/18 07:00 12/14/18 07:00 12/14/18 07:00 12/14/18 07:00 Intake and Output: 12/14/18 12/14/18 06:59 18:59 Intake Total 880 Balance 880 - Medications Medications: Current Medications Al Hydrox/Mg Hydrox/Simethicone (Maalox 30 Ml) 30 ml PO Q8 PRN PRN Reason: Indigestion / Heartburn Heparin Sodium (Porcine) (Heparin) 5,000 units SC Q8 [facility] Last Admin: 12/14/18 05:41 Dose: 5,000 units Hydromorphone HCl (Dilaudid) 0.5 mg IVP Q6H PRN PRN Reason: Pain, severe (8-10) Last Admin: 12/14/18 01:04 Dose: 0.5 mg Ceftriaxone Sodium (Rocephin Iv 1 Gm Duplex) 50 mls @ 100 mls/hr IVPB Q24H [facility]; Protocol Last Admin: 12/13/18 18:20 Dose: 100 mls/hr Pantoprazole Sodium 80 mg/ (Sodium Chloride) 100 mls @ 10 mls/hr IVPB .Q10H [facility] Last Admin: 12/14/18 04:15 Dose: 10 mls/hr Sodium Chloride (Sodium Chloride 0.9%) 1,000 mls @ 100 mls/hr IV .Q10H [facility] Last Admin: 12/14/18 00:58 Dose: 100 mls/hr Sucralfate (Carafate Oral Susp) 1 gm PO TID [facility] Last Admin: 12/13/18 18:15 Dose: 1 gm - Labs Labs: 12/13/18 12:08 12/13/18 12:08
[2018-12-14 08:51] LABS: BASO % 0.4 % (0.0-2.0); EOS # 0.2 K/uL (0.0-0.7); EOS % 1.6 % (0.0-4.0); LYMPH # 1.7 K/uL (1.0-4.3); LYMPH % 13.5 % (20.0-40.0); MEAN CELL VOLUME 89.3 fL (81.0-99.0); MEAN CORPUSCULAR HEMOGLOBIN 29.2 pg (27.0-31.0); MEAN CORPUSCULAR HGB CONC 32.8 g/dL (33.0-37.0); MEAN PLATELET VOLUME 7.3 fL (7.2-11.7); MONO # 0.7 K/uL (0.0-0.8); MONO % 5.8 % (0.0-10.0); NEUT # 9.7 K/uL (1.8-7.0); NEUT % 78.7 % (50.0-75.0); NRBC % 0.1 % (0.0-2.0); RBC 4.35 Mil/uL (3.80-5.20); RED CELL DISTRIBUTION WIDTH 13.1 % (11.5-14.5); WHITE BLOOD COUNT 12.3 K/uL (4.8-10.8)
[2018-12-14 08:54] LABS: HEMOGLOBIN 12.7 g/dL (11.0-16.0)
--- NOTE | 2018-12-14 09:12 | CP.PCM.CON ---
History of Present Illness - History of Present Illness History of Present Illness: CC: abdominal pain HPI: Asked by Dr Rosales to evaluate this 48 yr old woman who developed sudden severe non radiating mid abdominal pain 2 days ago. pain is worsened by food intake. Denies changes in bowel habits until yesterday when she developed loose BMs. Patient had pelvic sono and CT abdomen with contrast which did not show any significant GI related findings, possible gastritis and colitis, and pelvic congestion. Long h/o GERD for which she has been instructed to have EGD in [facility], but refused due to fear of the procedure. Pt takes NSAIDs on occasion for back pains but stopped because it was not helping. Pt has exertional dyspnea and positive cardiac stress test recently, but never followed up on this. Discussed with Dr Rosales. Review of Systems - Constitutional Constitutional: absent: Chills, Fever - EENT Eyes: absent: Change in Vision Ears: absent: Decreased Hearing - Cardiovascular Cardiovascular: Chest Pain with Activity. absent: Chest Pain at Rest, Orthopnea - Respiratory Respiratory: absent: Cough - Gastrointestinal Gastrointestinal: As Per HPI, Abdominal Pain - Genitourinary Genitourinary: absent: Change in Urinary Stream - Musculoskeletal Musculoskeletal: As Per HPI, Back Pain - Integumentary Integumentary: absent: Jaundice - Neurological Neurological: absent: Weakness - Psychiatric Psychiatric: absent: Anxiety Past Patient History - Past Medical History & Family History Past Medical History?: Yes - Past Social History Smoking Status: Never Smoked Chewing Tobacco Use: No Cigar Use: No Alcohol: None Drugs: Denies Home Situation {Lives}: With Family - CARDIAC Hx Cardiac Disorders: Yes Other/Comment: palpitations as per patient. open heart surgery as a child - PULMONARY Hx Asthma: Yes - MUSCULOSKELETAL/RHEUMATOLOGICAL Hx Musculoskeletal Disorders: Yes Hx Back Pain: Yes - GASTROINTESTINAL Hx Gastrointestinal Disorders: Yes Hx Gastroesophageal Reflux: Yes - PSYCHIATRIC Hx Substance Use: No - SURGICAL HISTORY Hx Appendectomy: Yes Hx Cholecystectomy: Yes - ANESTHESIA Hx Anesthesia: Yes Hx Anesthesia Reactions: No Meds Allergies/Adverse Reactions: Allergies Allergy/AdvReac Type Severity Reaction Status Date / Time No Known Allergies Allergy Verified 12/13/18 11:40 - Medications Medications: Current Medications Al Hydrox/Mg Hydrox/Simethicone (Maalox 30 Ml) 30 ml PO Q8 PRN PRN Reason: Indigestion / Heartburn Heparin Sodium (Porcine) (Heparin) 5,000 units SC Q8 [facility] Last Admin: 12/14/18 05:41 Dose: 5,000 units Hydromorphone HCl (Dilaudid) 0.5 mg IVP Q6H PRN PRN Reason: Pain, severe (8-10) Last Admin: 12/14/18 01:04 Dose: 0.5 mg Ceftriaxone Sodium (Rocephin Iv 1 Gm Duplex) 50 mls @ 100 mls/hr IVPB Q24H [facility]; Protocol Last Admin: 12/13/18 18:20 Dose: 100 mls/hr Pantoprazole Sodium 80 mg/ (Sodium Chloride) 100 mls @ 10 mls/hr IVPB .Q10H [facility] Last Admin: 12/14/18 04:15 Dose: 10 mls/hr Sodium Chloride (Sodium Chloride 0.9%) 1,000 mls @ 100 mls/hr IV .Q10H [facility] Last Admin: 12/14/18 00:58 Dose: 100 mls/hr Sucralfate (Carafate Oral Susp) 1 gm PO TID [facility] Last Admin: 12/13/18 18:15 Dose: 1 gm Physical Exam - Constitutional Appears: Well, No Acute Distress - Head Exam Head Exam: NORMOCEPHALIC - Eye Exam Eye Exam: absent: Scleral icterus - ENT Exam ENT Exam: Normal Exam - Neck Exam Neck exam: Positive for: Normal Inspection - Respiratory Exam Respiratory Exam: Clear to Auscultation Bilateral - Cardiovascular Exam Cardiovascular Exam: REGULAR RHYTHM - GI/Abdominal Exam GI & Abdominal Exam: Soft. absent: Guarding, Mass, Tenderness - Rectal Exam Rectal Exam: Deferred - Extremities Exam Extremities exam: Positive for: normal inspection - Neurological Exam Neurological exam: Alert, Oriented x3 - Psychiatric Exam Psychiatric exam: Normal Affect, Normal Mood - Skin Skin Exam: Warm Results - Vital Signs Recent Vital Signs: Last Vital Signs Temp 97.9 F 12/14/18 07:00 Pulse 77 12/14/18 07:00 Resp 20 12/14/18 07:00 BP 112/67 12/14/18 07:00 Pulse Ox 98 12/14/18 08:00 - Labs Result Diagrams: 12/14/18 08:32 12/13/18 12:08 Labs: Laboratory Results - last 24 hr 12/13/18 12/13/18 12/13/18 12:08 12:08 12:08 WBC 11.4 H D RBC 5.04 Hgb 14.7 Hct 45.4 MCV 90.0 MCH 29.2 MCHC 32.4 L RDW 13.1 Plt Count 383 MPV 7.2 Neut % (Auto) 72.8 Lymph % (Auto) 17.3 L [place] % (Auto) 4.9 Eos % (Auto) 4.4 H Baso % (Auto) 0.6 Neut # (Auto) 8.3 H Lymph # (Auto) 2.0 [place] # (Auto) 0.6 Eos # (Auto) 0.5 Baso # (Auto) 0.1 pO2 VBG pH VBG pCO2 VBG HCO3 VBG Total CO2 VBG O2 Sat (Calc) VBG Base Excess VBG Potassium Glucose Lactate Sodium 136 Potassium 3.5 L Chloride 100 Carbon Dioxide 27 Anion Gap 12 BUN 11 Creatinine 0.5 L Est GFR ( Amer) > 60 Est GFR (Non-Af Amer) > 60 Random Glucose 92 Calcium 8.9 Total Bilirubin 0.7 AST 38 H ALT 31 Alkaline Phosphatase 71 Troponin I < 0.0120 Total Protein 9.0 H Albumin 5.0 Globulin 3.9 Albumin/Globulin Ratio 1.3 Lipase 156 Beta HCG, Quant < 2.39 Venous Blood Potassium Urine Color Urine Clarity Urine pH Ur Specific [place] Urine Protein Urine Glucose (UA) Urine Ketones Urine Blood Urine Nitrate Urine Bilirubin Urine Urobilinogen Ur Leukocyte Esterase Urine WBC (Auto) Urine RBC (Auto) Ur Squamous Epith Cells Urine Bacteria 12/13/18 12/13/18 12/13/18 17:40 18:42 18:52 WBC RBC Hgb Hct MCV MCH MCHC RDW Plt Count MPV Neut % (Auto) Lymph % (Auto) [place] % (Auto) Eos % (Auto) Baso % (Auto) Neut # (Auto) Lymph # (Auto) [place] # (Auto) Eos # (Auto) Baso # (Auto) pO2 57 H VBG pH 7.38 VBG pCO2 39 L VBG HCO3 23.3 VBG Total CO2 24.3 VBG O2 Sat (Calc) 93.8 H VBG Base Excess -1.8 L VBG Potassium 5.2 Glucose 114 H Lactate 1.0 Sodium 138.0 Potassium Chloride 110.0 H Carbon Dioxide Anion Gap BUN Creatinine Est GFR ( Amer) Est GFR (Non-Af Amer) Random Glucose Calcium Total Bilirubin AST ALT Alkaline Phosphatase Troponin I Total Protein Albumin Globulin Albumin/Globulin Ratio Lipase 175 Beta HCG, Quant Venous Blood Potassium 5.2 Urine Color Yellow Urine Clarity Clear Urine pH 6.0 Ur Specific [place] > 1.060 H Urine Protein Negative Urine Glucose (UA) Normal Urine Ketones Trace Urine Blood Negative Urine Nitrate Negative Urine Bilirubin Negative Urine Urobilinogen Normal Ur Leukocyte Esterase Neg Urine WBC (Auto) 1 Urine RBC (Auto) 2 Ur Squamous Epith Cells 1 Urine Bacteria Rare 12/14/18 08:32 WBC 12.3 H RBC 4.35 Hgb 12.7 D Hct 38.8 MCV 89.3 MCH 29.2 MCHC 32.8 L RDW 13.1 Plt Count 292 MPV 7.3 Neut % (Auto) 78.7 H Lymph % (Auto) 13.5 L [place] % (Auto) 5.8 Eos % (Auto) 1.6 Baso % (Auto) 0.4 Neut # (Auto) 9.7 H Lymph # (Auto) 1.7 [place] # (Auto) 0.7 Eos # (Auto) 0.2 Baso # (Auto) 0.0 pO2 VBG pH VBG pCO2 VBG HCO3 VBG Total CO2 VBG O2 Sat (Calc) VBG Base Excess VBG Potassium Glucose Lactate Sodium Potassium Chloride Carbon Dioxide Anion Gap BUN Creatinine Est GFR ( Amer) Est GFR (Non-Af Amer) Random Glucose Calcium Total Bilirubin AST ALT Alkaline Phosphatase Troponin I Total Protein Albumin Globulin Albumin/Globulin Ratio Lipase Beta HCG, Quant Venous Blood Potassium Urine Color Urine Clarity Urine pH Ur Specific [place] Urine Protein Urine Glucose (UA) Urine Ketones Urine Blood Urine Nitrate Urine Bilirubin Urine Urobilinogen Ur Leukocyte Esterase Urine WBC (Auto) Urine RBC (Auto) Ur Squamous Epith Cells Urine Bacteria Assessment & Plan (1) Abdominal pain Assessment and Plan: Possible peptic ulcer CT- Colitis. Not symptomatic No evidence for ischemic bowel or pancreatitis on CT or labwork Rec: PPI, EGD Sunday. Elective cardiac workup as discussed with Dr Rosales Status: Acute
[2018-12-14] MEDS: Pantoprazole 40 mg EC Tab PO SCH (09:28)
[2018-12-14 10:06] LABS: ALB/GLOB RATIO 1.5 (1.0-2.1); ALT/SGPT 117 U/L (9-52); AST/SGOT 95 U/L (14-36); BLOOD UREA NITROGEN 9 mg/dL (7-17); CALCIUM 7.6 mg/dl (8.6-10.4); GFR NON-AFRICAN AMERICAN > 60; LIPASE 208 U/L (23-300)
--- NOTE | 2018-12-14 11:32 | US ---
Date of service: 12/13/2018 HISTORY: Abdominal pain COMPARISON: Comparison is made with the previous same-day CT of the abdomen and pelvis TECHNIQUE: Transabdominal and endovaginal ultrasound examination of the pelvis was performed. FINDINGS: UTERUS: Measures 8.3 x 4.9 x 5.1 cm. The uterus is retroverted otherwise normal in size and appearance. No fibroid or other mass lesion seen. ENDOMETRIUM: Measures 9 mm in diameter. Unremarkable. CERVIX: There are cyst seen at the uterine cervix likely represent nabothian cyst. The largest cyst measures 1.3 x 1.4 x 1.1 centimeter. RIGHT OVARY: Measures 2.8 x 1.9 x 2 cm. No solid mass. Normal flow. There is a cyst seen at the right ovary measures 1.6 x 1.4 x 1.5 centimeter. LEFT OVARY: Measures 2.4 x 1.1 x 2.5 cm. No solid mass. Normal flow. FREE FLUID: There is minimal free fluid in the pelvis. OTHER FINDINGS: There are prominent vessels seen in the left aspect of the pelvis. IMPRESSION: Multiple cyst seen at the uterine cervix likely represent nabothian cyst with the largest measures 1.4 centimeter. Retroverted uterus. 1.6 centimeter simple cyst is identified within the right ovary. Prominent vessels noted in the left aspect of the pelvis. Please correlate clinically for possible congestive pelvic syndrome. Preliminary report contains concordant findings was submitted by [facility] Radiology.
--- NOTE | 2018-12-14 11:37 | CP.PCM.PN ---
<Luke Hallmanaf - Last Filed: 12/14/18 11:34> Subjective - Date & Time of Evaluation Date of Evaluation: 12/14/18 Time of Evaluation: 08:00 - Subjective Subjective: Surgery: Dr. Ye Pt seen and examined. No acute overnight events. Pt states she feels better this AM and pain is well controlled. She continues to have epigastric tenderness but otherwise denies complaints. Pt states she is having BMs and denies N/V, fevers/chills Objective - Vital Signs/Intake and Output Vital Signs (last 24 hours): Temp Pulse Resp BP Pulse Ox 97.9 F 77 20 112/67 98 12/14/18 07:00 12/14/18 07:00 12/14/18 07:00 12/14/18 07:00 12/14/18 08:00 Intake and Output: 12/14/18 12/14/18 06:59 18:59 Intake Total 880 Balance 880 - Medications Medications: Current Medications Al Hydrox/Mg Hydrox/Simethicone (Maalox 30 Ml) 30 ml PO Q8 PRN PRN Reason: Indigestion / Heartburn Last Admin: 12/14/18 09:28 Dose: 30 ml Heparin Sodium (Porcine) (Heparin) 5,000 units SC Q8 [facility] Last Admin: 12/14/18 05:41 Dose: 5,000 units Hydromorphone HCl (Dilaudid) 0.5 mg IVP Q6H PRN PRN Reason: Pain, severe (8-10) Last Admin: 12/14/18 01:04 Dose: 0.5 mg Sodium Chloride (Sodium Chloride 0.9%) 1,000 mls @ 100 mls/hr IV .Q10H [facility] Last Admin: 12/14/18 00:58 Dose: 100 mls/hr Potassium Chloride (Potassium Chloride 10 Meq/100 Ml) 10 meq in 100 mls @ 100 mls/hr IVPB Q3H [facility] Stop: 12/14/18 16:59 Metronidazole (Flagyl) 500 mg in 100 mls @ 100 mls/hr IVPB Q8H [facility]; Protocol Piperacillin Sod/Tazobactam Sod (Zosyn 3.375 Gm Iv Premix) 3.375 gm in 50 mls @ 100 mls/hr IVPB Q6H [facility]; Protocol Pantoprazole Sodium (Protonix Ec Tab) 40 mg PO DAILY [facility] Last Admin: 12/14/18 09:28 Dose: 40 mg - Labs Labs: 12/14/18 08:32 12/14/18 08:32 - Constitutional Appears: Well, No Acute Distress - Head Exam Head Exam: ATRAUMATIC, NORMOCEPHALIC - Eye Exam Eye Exam: Normal appearance - ENT Exam ENT Exam: Mucous Membranes Moist - Respiratory Exam Respiratory Exam: NORMAL BREATHING PATTERN - Cardiovascular Exam Cardiovascular Exam: RRR - GI/Abdominal Exam GI & Abdominal Exam: Soft, Tenderness (epigastric region ). absent: Distended, Guarding, Rebound - Neurological Exam Neurological Exam: Alert, Awake, Oriented x3 - Skin Skin Exam: Dry, Intact, Warm Assessment and Plan - Assessment and Plan (Free Text) Assessment: 48F with abdominal pain secondary to gastritis vs colitis Plan: - cont protonix - plan for EGD on Mon per discussion with Dr. Phipps - start CLD - start Zosyn/Flagyl per Dr. Ye recs Lexx <Kenneth Ye B - Last Filed: 12/15/18 16:30> Objective - Vital Signs/Intake and Output Vital Signs (last 24 hours): Temp Pulse Resp BP Pulse Ox 98.1 F 84 20 117/74 99 12/15/18 15:00 12/15/18 15:00 12/15/18 15:00 12/15/18 15:00 12/15/18 15:00 - Medications Medications: Current Medications Al Hydrox/Mg Hydrox/Simethicone (Maalox 30 Ml) 30 ml PO Q8 PRN PRN Reason: Indigestion / Heartburn Last Admin: 12/14/18 09:28 Dose: 30 ml Heparin Sodium (Porcine) (Heparin) 5,000 units SC Q8 [facility] Last Admin: 12/15/18 14:48 Dose: Not Given Hydromorphone HCl (Dilaudid) 0.5 mg IVP Q6H PRN PRN Reason: Pain, severe (8-10) Last Admin: 12/14/18 01:04 Dose: 0.5 mg Sodium Chloride (Sodium Chloride 0.9%) 1,000 mls @ 100 mls/hr IV .Q10H [facility] Last Admin: 12/15/18 12:38 Dose: Not Given Metronidazole (Flagyl) 500 mg in 100 mls @ 100 mls/hr IVPB Q8H [facility]; Protocol Last Admin: 12/15/18 12:38 Dose: 100 mls/hr Piperacillin Sod/Tazobactam Sod (Zosyn 3.375 Gm Iv Premix) 3.375 gm in 50 mls @ 100 mls/hr IVPB Q6H [facility]; Protocol Last Admin: 12/15/18 10:34 Dose: 100 mls/hr Pantoprazole Sodium (Protonix Ec Tab) 40 mg PO DAILY [facility] Last Admin: 12/15/18 10:34 Dose: 40 mg - Labs Labs: 12/15/18 08:26 12/15/18 08:26 Attending/Attestation - Attestation I have personally seen and examined this patient.: Yes I have fully participated in the care of the patient.: Yes I have reviewed all pertinent clinical information, including history, physical exam and plan: Yes Notes (Text): Pt was seen and examined at bedside Agree with above note and assessment Pt has mild abdominal pain and diarrhea EGD on sunday as per GI Change IV antibiotics to Zosyn and flagyl Plan d.w pt in detail. Risk and benefit explained in detail.
[2018-12-14] MEDS: metroNIDAZOLE IV 500 mg/100 ml 500 MG/100 ML BAG IVPB SCH ×2 (12:15→23:52)
[2018-12-14] MEDS: Piperacill/Tazo 3.375gm in Dex 3.375 GM/50 ML BAG IVPB SCH ×2 (12:16→16:32)
[2018-12-14] MEDS ORDERED: Potassium Chloride 20 mEq ER Tab PO ONE ×2 (13:58)
[2018-12-15] MEDS: Piperacill/Tazo 3.375gm in Dex 3.375 GM/50 ML BAG IVPB SCH ×4 (02:21→17:03)
[2018-12-15] MEDS: metroNIDAZOLE IV 500 mg/100 ml 500 MG/100 ML BAG IVPB SCH ×3 (04:35→20:30)
[2018-12-15 08:35] LABS: HEMOGLOBIN 12.5 g/dL (11.0-16.0); MEAN CELL VOLUME 89.8 fL (81.0-99.0); MEAN CORPUSCULAR HEMOGLOBIN 30.1 pg (27.0-31.0); MEAN CORPUSCULAR HGB CONC 33.5 g/dL (33.0-37.0); MEAN PLATELET VOLUME 7.2 fL (7.2-11.7); RBC 4.16 Mil/uL (3.80-5.20); RED CELL DISTRIBUTION WIDTH 13.3 % (11.5-14.5); WHITE BLOOD COUNT 7.4 K/uL (4.8-10.8)
--- NOTE | 2018-12-15 08:54 | CP.PCM.PN ---
<Tejal Hallman - Last Filed: 12/15/18 08:50> Subjective - Date & Time of Evaluation Date of Evaluation: 12/15/18 Time of Evaluation: 08:50 - Subjective Subjective: Surgery: Dr. Ye Pt seen and examined. No acute overnight events. States she's feeling a lot better this morning, she's hungry and would like to eat solid food. Pt states her abdominal pain has improved and denies any episodes of nausea/vomiting. Having regular BMs. Denies fevers/chills. Objective - Vital Signs/Intake and Output Vital Signs (last 24 hours): Temp Pulse Resp BP Pulse Ox 98.7 F 73 20 118/75 94 L 12/15/18 07:00 12/15/18 07:00 12/15/18 07:00 12/15/18 07:00 12/15/18 07:00 - Medications Medications: Current Medications Al Hydrox/Mg Hydrox/Simethicone (Maalox 30 Ml) 30 ml PO Q8 PRN PRN Reason: Indigestion / Heartburn Last Admin: 12/14/18 09:28 Dose: 30 ml Heparin Sodium (Porcine) (Heparin) 5,000 units SC Q8 [facility] Last Admin: 12/15/18 05:59 Dose: Not Given Hydromorphone HCl (Dilaudid) 0.5 mg IVP Q6H PRN PRN Reason: Pain, severe (8-10) Last Admin: 12/14/18 01:04 Dose: 0.5 mg Sodium Chloride (Sodium Chloride 0.9%) 1,000 mls @ 100 mls/hr IV .Q10H [facility] Last Admin: 12/14/18 00:00 Dose: 100 mls/hr Metronidazole (Flagyl) 500 mg in 100 mls @ 100 mls/hr IVPB Q8H [facility]; Protocol Last Admin: 12/15/18 04:35 Dose: 100 mls/hr Piperacillin Sod/Tazobactam Sod (Zosyn 3.375 Gm Iv Premix) 3.375 gm in 50 mls @ 100 mls/hr IVPB Q6H [facility]; Protocol Last Admin: 12/15/18 04:34 Dose: 100 mls/hr Pantoprazole Sodium (Protonix Ec Tab) 40 mg PO DAILY [facility] Last Admin: 12/14/18 09:28 Dose: 40 mg - Labs Labs: 12/15/18 08:26 12/14/18 08:32 - Constitutional Appears: Well, No Acute Distress - Head Exam Head Exam: ATRAUMATIC, NORMOCEPHALIC - Eye Exam Eye Exam: Normal appearance - ENT Exam ENT Exam: Mucous Membranes Moist - Respiratory Exam Respiratory Exam: NORMAL BREATHING PATTERN - Cardiovascular Exam Cardiovascular Exam: RRR - GI/Abdominal Exam GI & Abdominal Exam: Soft. absent: Distended, Guarding, Tenderness - Neurological Exam Neurological Exam: Alert, Awake, Oriented x3 - Skin Skin Exam: Dry, Warm Assessment and Plan - Assessment and Plan (Free Text) Assessment: 48F with abdominal pain likely secondary to gastritis Plan: - advance to soft diet - plan for EGD with Dr. Phipps tomorrow AM - cont to monitor - d/w Dr. Ephraim Hallman <Kenneth Ye - Last Filed: 12/15/18 16:26> Objective - Vital Signs/Intake and Output Vital Signs (last 24 hours): Temp Pulse Resp BP Pulse Ox 98.1 F 84 20 117/74 99 12/15/18 15:00 12/15/18 15:00 12/15/18 15:00 12/15/18 15:00 12/15/18 15:00 - Medications Medications: Current Medications Al Hydrox/Mg Hydrox/Simethicone (Maalox 30 Ml) 30 ml PO Q8 PRN PRN Reason: Indigestion / Heartburn Last Admin: 12/14/18 09:28 Dose: 30 ml Heparin Sodium (Porcine) (Heparin) 5,000 units SC Q8 [facility] Last Admin: 12/15/18 14:48 Dose: Not Given Hydromorphone HCl (Dilaudid) 0.5 mg IVP Q6H PRN PRN Reason: Pain, severe (8-10) Last Admin: 12/14/18 01:04 Dose: 0.5 mg Sodium Chloride (Sodium Chloride 0.9%) 1,000 mls @ 100 mls/hr IV .Q10H [facility] Last Admin: 12/15/18 12:38 Dose: Not Given Metronidazole (Flagyl) 500 mg in 100 mls @ 100 mls/hr IVPB Q8H [facility]; Protocol Last Admin: 12/15/18 12:38 Dose: 100 mls/hr Piperacillin Sod/Tazobactam Sod (Zosyn 3.375 Gm Iv Premix) 3.375 gm in 50 mls @ 100 mls/hr IVPB Q6H [facility]; Protocol Last Admin: 12/15/18 10:34 Dose: 100 mls/hr Pantoprazole Sodium (Protonix Ec Tab) 40 mg PO DAILY [facility] Last Admin: 12/15/18 10:34 Dose: 40 mg - Labs Labs: 12/15/18 08:26 12/15/18 08:26 Attending/Attestation - Attestation I have fully participated in the care of the patient.: Yes I have reviewed all pertinent clinical information, including history, physical exam and plan: Yes Notes (Text): Pt is improving clinically EGD in am c.w current mx Pt can be DC home after EGD Plan d.w pt in detail.
[2018-12-15 09:19] LABS: BLOOD UREA NITROGEN 4 mg/dL (7-17); CALCIUM 7.9 mg/dl (8.6-10.4); GFR NON-AFRICAN AMERICAN > 60
[2018-12-15] MEDS: Pantoprazole 40 mg EC Tab PO SCH (10:34)
--- NOTE | 2018-12-15 11:42 | CP.PCM.PN ---
Subjective - Date & Time of Evaluation Date of Evaluation: 12/15/18 Time of Evaluation: 11:39 - Subjective Subjective: Epigastric pain nearly resolved LFTs elevated yesterday, no repeat today Tolerating solid foods Noted black BM, Hgb stable Placed on antibiotics by surgery. No clinical signs of infection or colitis noted, but CT raises possibility of colitis, Nabothian cysts, etc Objective - Vital Signs/Intake and Output Vital Signs (last 24 hours): Temp Pulse Resp BP Pulse Ox 98.7 F 73 20 118/75 94 L 12/15/18 07:00 12/15/18 07:00 12/15/18 07:00 12/15/18 07:00 12/15/18 07:00 - Medications Medications: Current Medications Al Hydrox/Mg Hydrox/Simethicone (Maalox 30 Ml) 30 ml PO Q8 PRN PRN Reason: Indigestion / Heartburn Last Admin: 12/14/18 09:28 Dose: 30 ml Heparin Sodium (Porcine) (Heparin) 5,000 units SC Q8 [facility] Last Admin: 12/15/18 05:59 Dose: Not Given Hydromorphone HCl (Dilaudid) 0.5 mg IVP Q6H PRN PRN Reason: Pain, severe (8-10) Last Admin: 12/14/18 01:04 Dose: 0.5 mg Sodium Chloride (Sodium Chloride 0.9%) 1,000 mls @ 100 mls/hr IV .Q10H [facility] Last Admin: 12/14/18 00:00 Dose: 100 mls/hr Metronidazole (Flagyl) 500 mg in 100 mls @ 100 mls/hr IVPB Q8H [facility]; Protocol Last Admin: 12/15/18 04:35 Dose: 100 mls/hr Piperacillin Sod/Tazobactam Sod (Zosyn 3.375 Gm Iv Premix) 3.375 gm in 50 mls @ 100 mls/hr IVPB Q6H [facility]; Protocol Last Admin: 12/15/18 10:34 Dose: 100 mls/hr Pantoprazole Sodium (Protonix Ec Tab) 40 mg PO DAILY [facility] Last Admin: 12/15/18 10:34 Dose: 40 mg - Labs Labs: 12/15/18 08:26 12/15/18 08:26 - Constitutional Appears: Well, No Acute Distress - Head Exam Head Exam: NORMOCEPHALIC - Eye Exam Eye Exam: absent: Scleral icterus - Respiratory Exam Respiratory Exam: NORMAL BREATHING PATTERN - Cardiovascular Exam Cardiovascular Exam: REGULAR RHYTHM - GI/Abdominal Exam GI & Abdominal Exam: Soft. absent: Tenderness Assessment and Plan (1) Abdominal pain Assessment & Plan: Improved R/O Gastritis/peptic ulcer R/O CBD stone (s/p cholecystectomy) Colitis less likely Rec: check Liver chemistries, MRCP, EGD Sunday. Continue PPI. Consider stopping antibiotics Status: Acute
[2018-12-15] MEDS: Sodium Chloride 0.9% 1,000 ML IV SCH ×3 (12:37→20:30)
[2018-12-15 13:52] LABS: ALB/GLOB RATIO 1.4 (1.0-2.1); ALT/SGPT 113 U/L (9-52); AST/SGOT 73 U/L (14-36); BILIRUBIN,DIRECT 0.1 mg/dL (0.0-0.4)
--- NOTE | 2018-12-15 18:13 | CP.PCM.PN ---
Subjective - Date & Time of Evaluation Date of Evaluation: 12/15/18 Time of Evaluation: 18:12 - Subjective Subjective: Still having mild epigastric discomfort and abdominal pain. But she is tolerating the oral feeding at this time. On examination: Epigastric tenderness noted. Vital signs stable. Chest good air entry Regular heart sounds noted Patient was seen by heater helper. Scheduled to have a upper endoscopy tomorrow. We will plan for discharge plan after that Objective - Vital Signs/Intake and Output Vital Signs (last 24 hours): Temp Pulse Resp BP Pulse Ox 98.1 F 84 20 117/74 99 12/15/18 15:00 12/15/18 15:00 12/15/18 15:00 12/15/18 15:00 12/15/18 16:42 - Medications Medications: Current Medications Al Hydrox/Mg Hydrox/Simethicone (Maalox 30 Ml) 30 ml PO Q8 PRN PRN Reason: Indigestion / Heartburn Last Admin: 12/14/18 09:28 Dose: 30 ml Heparin Sodium (Porcine) (Heparin) 5,000 units SC Q8 [facility] Last Admin: 12/15/18 14:48 Dose: Not Given Sodium Chloride (Sodium Chloride 0.9%) 1,000 mls @ 100 mls/hr IV .Q10H [facility] Last Admin: 12/15/18 12:38 Dose: Not Given Metronidazole (Flagyl) 500 mg in 100 mls @ 100 mls/hr IVPB Q8H [facility]; Protocol Last Admin: 12/15/18 12:38 Dose: 100 mls/hr Piperacillin Sod/Tazobactam Sod (Zosyn 3.375 Gm Iv Premix) 3.375 gm in 50 mls @ 100 mls/hr IVPB Q6H [facility]; Protocol Last Admin: 12/15/18 17:03 Dose: 100 mls/hr Pantoprazole Sodium (Protonix Ec Tab) 40 mg PO DAILY [facility] Last Admin: 12/15/18 10:34 Dose: 40 mg - Labs Labs: 12/15/18 08:26 12/15/18 08:26
[2018-12-16] MEDS: Piperacill/Tazo 3.375gm in Dex 3.375 GM/50 ML BAG IVPB SCH ×4 (00:06→16:35)
[2018-12-16] MEDS: metroNIDAZOLE IV 500 mg/100 ml 500 MG/100 ML BAG IVPB SCH ×2 (03:55→11:20)
[2018-12-16] MEDS: Sodium Chloride 0.9% 1,000 ML IV SCH ×2 (06:13→07:40)
[2018-12-16 07:09] LABS: BASO # 0.1 K/uL (0.0-0.2); BASO % 0.5 % (0.0-2.0); EOS # 0.4 K/uL (0.0-0.7); EOS % 3.7 % (0.0-4.0); HEMOGLOBIN 13.3 g/dL (11.0-16.0); LYMPH # 1.9 K/uL (1.0-4.3); MEAN CELL VOLUME 89.3 fL (81.0-99.0); MEAN CORPUSCULAR HEMOGLOBIN 29.7 pg (27.0-31.0); MEAN CORPUSCULAR HGB CONC 33.2 g/dL (33.0-37.0); MEAN PLATELET VOLUME 6.9 fL (7.2-11.7); MONO # 0.8 K/uL (0.0-0.8); MONO % 7.8 % (0.0-10.0); NEUT # 6.9 K/uL (1.8-7.0); RBC 4.5 Mil/uL (3.80-5.20)
[2018-12-16 07:51] LABS: ALB/GLOB RATIO 1.4 (1.0-2.1); ALBUMIN 4.3 g/dL (3.5-5.0); ALT/SGPT 84 U/L (9-52); AST/SGOT 59 U/L (14-36); BLOOD UREA NITROGEN 7 mg/dL (7-17); CALCIUM 7.9 mg/dl (8.6-10.4); GFR NON-AFRICAN AMERICAN > 60
[2018-12-16] MEDS: Pantoprazole 40 mg EC Tab PO SCH (09:42)
[2018-12-16] MEDS ORDERED: Lactated Ringer's 1,000 ML IV ONE (13:45)
[2018-12-16] MEDS ORDERED: Propofol 10 mg/ml Inj (20 ML) ONE (13:53)
--- NOTE | 2018-12-16 14:07 | CP.PCM.PN ---
Subjective - Date & Time of Evaluation Date of Evaluation: 12/16/18 Time of Evaluation: 14:05 - Subjective Subjective: EGD: mild gastritis benign submucosal gastric lesion Rec: Check MRCP and advance diet as tolerated. If stable can be discharged. May resume heparin. Objective - Vital Signs/Intake and Output Vital Signs (last 24 hours): Temp Pulse Resp BP Pulse Ox 97.8 F 73 20 116/72 97 12/16/18 07:05 12/16/18 07:05 12/16/18 07:05 12/16/18 07:05 12/16/18 11:59 - Medications Medications: Current Medications Al Hydrox/Mg Hydrox/Simethicone (Maalox 30 Ml) 30 ml PO Q8 PRN PRN Reason: Indigestion / Heartburn Last Admin: 12/14/18 09:28 Dose: 30 ml Heparin Sodium (Porcine) (Heparin) 5,000 units SC Q8 [facility] Last Admin: 12/15/18 21:15 Dose: Not Given Sodium Chloride (Sodium Chloride 0.9%) 1,000 mls @ 100 mls/hr IV .Q10H [facility] Last Admin: 12/16/18 07:40 Dose: 100 mls/hr Metronidazole (Flagyl) 500 mg in 100 mls @ 100 mls/hr IVPB Q8H [facility]; Protocol Last Admin: 12/16/18 11:20 Dose: 100 mls/hr Piperacillin Sod/Tazobactam Sod (Zosyn 3.375 Gm Iv Premix) 3.375 gm in 50 mls @ 100 mls/hr IVPB Q6H [facility]; Protocol Last Admin: 12/16/18 11:20 Dose: 100 mls/hr Pantoprazole Sodium (Protonix Ec Tab) 40 mg PO DAILY [facility] Last Admin: 12/16/18 09:42 Dose: Not Given - Labs Labs: 12/16/18 07:05 12/16/18 07:05 Assessment and Plan (1) Abdominal pain Status: Acute
[2018-12-16 14:52] VITALS: RESP 20
--- NOTE | 2018-12-16 16:30 | MRI ---
MRCP Indication: biliary abd pain, elevated liver chemistries Technique: Multiplanar, multisequence MR images of the abdomen were obtained, including heavily T2 weighted MRCP images of the biliary system. Rotating maximum intensity projection images of the biliary system were generated. A total of 568 images were submitted for review. Comparison: CT abdomen and pelvis with IV contrast performed 12/13/18 Findings: The liver appears grossly unremarkable on this noncontrast examination. The patient is status postcholecystectomy. The common bile duct appears top-normal measuring approximately 6 mm in diameter. No discrete focal filling defect evident. There is no intrahepatic biliary ductal dilatation. The pancreatic duct appears within normal limits of caliber. The included portions of the noncontrast adrenal glands, kidneys, spleen, and pancreas appear grossly unremarkable. No bulky abdominal lymphadenopathy is seen. No ascites. No acute osseous abnormality is detected. Impression: Gallbladder is not identified consistent with cholecystectomy. Common bile duct measures approximately 6 mm in diameter without focal filling defect appreciated.
--- NOTE | 2018-12-16 16:34 | CP.PCM.DIS ---
Provider - Provider Date of Admission: 12/13/18 15:41 Attending physician: Izzy Rosales MD Consults: 12/13/18 15:40 General Surgery Consult Stat Comment: Consulting Provider: Kenneth Ye Consulting Physician: Kenneth Ye Reason for Consult: abd. pain 12/13/18 15:41 Gastroenterology Consult Routine Comment: Consulting Provider: Edwin Phipps Consulting Physician: Edwin Phipps Reason for Consult: abd. ta n 12/13/18 19:36 Physician Consult Routine Comment: Consulting Provider: Rema Hanna Consulting Physician: Rema Hanna Reason for Consult: PID Hospital Course - Lab Results Lab Results: Micro Results 12/13/18 17:17 Blood Blood Culture - Preliminary NO GROWTH AFTER 48 HOURS 12/13/18 17:30 Blood Blood Culture - Preliminary NO GROWTH AFTER 48 HOURS Most Recent Lab Values WBC 10.0 K/uL (4.8-10.8) 12/16/18 07:05 RBC 4.50 Mil/uL (3.80-5.20) 12/16/18 07:05 Hgb 13.3 g/dL (11.0-16.0) 12/16/18 07:05 Hct 40.2 % (34.0-47.0) 12/16/18 07:05 MCV 89.3 fL (81.0-99.0) 12/16/18 07:05 MCH 29.7 pg (27.0-31.0) 12/16/18 07:05 MCHC 33.2 g/dL (33.0-37.0) 12/16/18 07:05 RDW 13.0 % (11.5-14.5) 12/16/18 07:05 Plt Count 317 K/uL (130-400) 12/16/18 07:05 MPV 6.9 fL (7.2-11.7) L 12/16/18 07:05 Neut % (Auto) 69.0 % (50.0-75.0) 12/16/18 07:05 Lymph % (Auto) 19.0 % (20.0-40.0) L 12/16/18 07:05 [place] % (Auto) 7.8 % (0.0-10.0) 12/16/18 07:05 Eos % (Auto) 3.7 % (0.0-4.0) 12/16/18 07:05 Baso % (Auto) 0.5 % (0.0-2.0) 12/16/18 07:05 Neut # (Auto) 6.9 K/uL (1.8-7.0) 12/16/18 07:05 Lymph # (Auto) 1.9 K/uL (1.0-4.3) 12/16/18 07:05 [place] # (Auto) 0.8 K/uL (0.0-0.8) 12/16/18 07:05 Eos # (Auto) 0.4 K/uL (0.0-0.7) 12/16/18 07:05 Baso # (Auto) 0.1 K/uL (0.0-0.2) 12/16/18 07:05 ESR 10 mm/hr (0-20) 12/14/18 08:32 pO2 57 mm/Hg (30-55) H 12/13/18 17:40 VBG pH 7.38 (7.32-7.43) 12/13/18 17:40 VBG pCO2 39 mmHg (40-60) L 12/13/18 17:40 VBG HCO3 23.3 mmol/L 12/13/18 17:40 VBG Total CO2 24.3 mmol/L (22-28) 12/13/18 17:40 VBG O2 Sat (Calc) 93.8 % (40-65) H 12/13/18 17:40 VBG Base Excess -1.8 mmol/L (0.0-2.0) L 12/13/18 17:40 VBG Potassium 5.2 mmol/L (3.6-5.2) 12/13/18 17:40 Sodium 138.0 mmol/l (132-148) 12/13/18 17:40 Chloride 110.0 mmol/L (98-107) H 12/13/18 17:40 Glucose 114 mg/dl (65-105) H 12/13/18 17:40 Lactate 1.0 mmol/L (0.7-2.1) 12/13/18 17:40 Sodium 136 mmol/L (132-148) 12/16/18 07:05 Potassium 3.6 mmol/L (3.6-5.2) 12/16/18 07:05 Chloride 104 mmol/L (98-107) 12/16/18 07:05 Carbon Dioxide 23 mmol/L (22-30) 12/16/18 07:05 Anion Gap 12 (10-20) 12/16/18 07:05 BUN 7 mg/dL (7-17) 12/16/18 07:05 Creatinine 0.5 mg/dL (0.7-1.2) L 12/16/18 07:05 Est GFR ( Amer) > 60 12/16/18 07:05 Est GFR (Non-Af Amer) > 60 12/16/18 07:05 Random Glucose 109 mg/dL (65-105) H 12/16/18 07:05 Calcium 7.9 mg/dl (8.6-10.4) L 12/16/18 07:05 Phosphorus 2.3 mg/dL (2.5-4.5) L 12/16/18 07:05 Magnesium 1.9 mg/dL (1.6-2.3) 12/16/18 07:05 Total Bilirubin 0.7 mg/dL (0.2-1.3) 12/16/18 07:05 Direct Bilirubin 0.1 mg/dL (0.0-0.4) 12/15/18 08:26 AST 59 U/L (14-36) H 12/16/18 07:05 ALT 84 U/L (9-52) H D 12/16/18 07:05 Alkaline Phosphatase 77 U/L (38-126) 12/16/18 07:05 Total Creatine Kinase 67 U/L (30-135) 12/14/18 08:32 Troponin I < 0.0120 ng/mL (0.00-0.120) 12/13/18 12:08 C-Reactive Protein 20.10 mg/L (0.0-9.9) H 12/14/18 08:32 Total Protein 7.3 g/dL (6.3-8.3) 12/16/18 07:05 Albumin 4.3 g/dL (3.5-5.0) 12/16/18 07:05 Globulin 3.0 gm/dL (2.2-3.9) 12/16/18 07:05 Albumin/Globulin Ratio 1.4 (1.0-2.1) 12/16/18 07:05 Lipase 208 U/L (23-300) 12/14/18 08:32 Beta HCG, Quant < 2.39 mIU/ML 12/13/18 12:08 Venous Blood Potassium 5.2 mmol/L (3.6-5.2) 12/13/18 17:40 Urine Color Yellow (YELLOW) 12/13/18 18:42 Urine Clarity Clear (Clear) 12/13/18 18:42 Urine pH 6.0 (5.0-8.0) 12/13/18 18:42 Ur Specific [place] > 1.060 (1.003-1.030) H 12/13/18 18:42 Urine Protein Negative mg/dL (NEGATIVE) 12/13/18 18:42 Urine Glucose (UA) Normal mg/dL (Normal) 12/13/18 18:42 Urine Ketones Trace mg/dL (NEGATIVE) 12/13/18 18:42 Urine Blood Negative (NEGATIVE) 12/13/18 18:42 Urine Nitrate Negative (NEGATIVE) 12/13/18 18:42 Urine Bilirubin Negative (NEGATIVE) 12/13/18 18:42 Urine Urobilinogen Normal mg/dL (0.2-1.0) 12/13/18 18:42 Ur Leukocyte Esterase Neg [place]/uL (Negative) 12/13/18 18:42 Urine WBC (Auto) 1 /hpf (0-5) 12/13/18 18:42 Urine RBC (Auto) 2 /hpf (0-3) 12/13/18 18:42 Ur Squamous Epith Cells 1 /hpf (0-5) 12/13/18 18:42 Urine Bacteria Rare (<OCC) 12/13/18 18:42 Urine HCG, Qual Negative (NEGATIVE) 12/16/18 12:39 Stool Occult Blood Negative (NEGATIVE) 12/15/18 12:00 C. difficile Ag & Toxin Negative (NEGATIVE) 12/14/18 08:21 Giardia Antigen Not detected (Not Detected) 12/14/18 08:21 Discharge Exam - Head Exam Head Exam: NORMOCEPHALIC Discharge Plan - Follow Up Plan Condition: FAIR Disposition: HOME/ ROUTINE
[2018-12-16 16:47] VITALS: BP 132/85; PULSE 81; TEMP 98; O2SAT 99
--- NOTE | 2018-12-16 17:12 | CP.PCM.PN ---
Subjective - Date & Time of Evaluation Date of Evaluation: 12/16/18 Time of Evaluation: 06:45 - Subjective Subjective: General surgery Dr. Ye Pt S&E @bedside. No acute events overnight. pt has no complaints. denies F/C, N/V, abd pain, D/C. (+)BM/Flatus. tolerating diet. Objective - Vital Signs/Intake and Output Vital Signs (last 24 hours): Temp Pulse Resp BP Pulse Ox 98 F 81 20 132/85 99 12/16/18 16:45 12/16/18 16:45 12/16/18 16:45 12/16/18 16:45 12/16/18 16:45 Intake and Output: 12/16/18 12/16/18 06:59 18:59 Intake Total 700 Balance 700 - Medications Medications: Current Medications Al Hydrox/Mg Hydrox/Simethicone (Maalox 30 Ml) 30 ml PO Q8 PRN PRN Reason: Indigestion / Heartburn Last Admin: 12/14/18 09:28 Dose: 30 ml Heparin Sodium (Porcine) (Heparin) 5,000 units SC Q8 [facility] Last Admin: 12/15/18 21:15 Dose: Not Given Sodium Chloride (Sodium Chloride 0.9%) 1,000 mls @ 100 mls/hr IV .Q10H [facility] Last Admin: 12/16/18 07:40 Dose: 100 mls/hr Metronidazole (Flagyl) 500 mg in 100 mls @ 100 mls/hr IVPB Q8H [facility]; Protocol Last Admin: 12/16/18 11:20 Dose: 100 mls/hr Piperacillin Sod/Tazobactam Sod (Zosyn 3.375 Gm Iv Premix) 3.375 gm in 50 mls @ 100 mls/hr IVPB Q6H [facility]; Protocol Last Admin: 12/16/18 16:35 Dose: 100 mls/hr Pantoprazole Sodium (Protonix Ec Tab) 40 mg PO DAILY [facility] Last Admin: 12/16/18 09:42 Dose: Not Given - Labs Labs: 12/16/18 07:05 12/16/18 07:05 - Constitutional Appears: Non-toxic, No Acute Distress - Head Exam Head Exam: NORMAL INSPECTION - Eye Exam Eye Exam: Normal appearance - ENT Exam ENT Exam: Mucous Membranes Moist - Respiratory Exam Respiratory Exam: NORMAL BREATHING PATTERN. absent: Accessory Muscle Use, Res piratory Distress - Cardiovascular Exam Cardiovascular Exam: REGULAR RHYTHM. absent: Bradycardia, Tachycardia - GI/Abdominal Exam GI & Abdominal Exam: Soft. absent: Distended, Firm, Guarding, Rigid, Tenderness - Extremities Exam Extremities Exam: Normal Inspection - Neurological Exam Neurological Exam: Alert, Awake, Oriented x3 - Psychiatric Exam Psychiatric exam: Normal Affect, Normal Mood - Skin Skin Exam: Dry, Intact, Normal Color, Warm Assessment and Plan - Assessment and Plan (Free Text) Assessment: 48 y/o F w/ abd pain 2/2 gastritis Plan: - EGD today w/ GI - cont protonix BID - monitor bowel fxn - pain management - no surgical intervention at this time - please reconsult if needed Pt discussed w/ Dr. Ephraim You DO PGY3
== END 2018-12-16 18:39 | disposition home or self-care (01) ==
LOC: C.ER 11:32 → C.9E 15:41 → C.5S 17:45
PROVIDERS: ADMIT Internal Medicine; ATTEND Internal Medicine
DX: R10.13 Epigastric pain (principal); K21.9 Gastro-esophageal reflux disease without esophagitis; J45.909 Unspecified asthma, uncomplicated; I10 Essential (primary) hypertension; I25.2 Old myocardial infarction
CPT/HCPCS: 36415; 43239; 74022; 74177; 74181; 76830; 76856; 80048; 80053; 80076; 81001; 82438; 82550; 82803; 83690; 83735; 84100; 84302; 84311; 84484; 84702; 84703; 85025; 85027; 85651; 86140; 87040; 87045; 87230; 87329; 88305; 88342; 96361; 96365; 96366; 96367; 96372; 96375; 96376; 99285; C9113; G0328; G0378; J0696; J1170; J1644; J1885; J2001; J2270; J2405; J2543; J2704; J3480; J7030; J7120; Q9967